=== PATIENT | male | born 2000 | race Caucasian/White ===

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

== ENCOUNTER 2021-05-06 12:19 | Emergency (ER) | payer OTHER ==
[~2021-05-06] VITALS: Ht 170.2 cm; Wt 98.0 kg
[~2021-05-06 12:19] MED LIST: ONDA-188 SL
[2021-05-06 12:29] VITALS: BP 146/89
[2021-05-06] MEDS ORDERED: IBUPROFEN 600 MG TAB PO ONE (12:40)
[2021-05-06] MEDS ORDERED: IBUPROFEN 600 MG TAB ONE (13:56)
[2021-05-06] MEDS ORDERED: NAPR-54 PO (13:59)
--- NOTE | 2021-05-06 14:33 | NUR ---
20/M BIB SELF WITH C/O LEFT ARM, SHOULDER AND LEFT LEG PAIN SINCE THURSDAY. STATES HE SLIPPED AND FELL IN THE KITCHEN AT WORK CAUSING DISHES TO FALL DOWN ON HIM. PATIENT DENIES HEAD INJURY, LOC, N/V. PATIENT AMBULATORY UPON ARRIVAL, DENIES TAKING ANYTHING FOR PAIN.
[2021-05-06 14:39] VITALS: BP 146/84
--- NOTE | 2021-05-06 14:39 | NUR ---
Patient discharged with v/s stable. Written and verbal after care instructions ABOUT CONTUSION given and explained. Patient alert, oriented and verbalized understanding of instructions. Ambulatory with steady gait. All questions addressed prior to discharge. ID band removed. Patient advised to follow up with PMD. Rx of NAPROXEN given. Patient educated on indication of medication including possible reaction and side effects. Opportunity to ask questions provided and answered.
== END 2021-05-06 14:39 | disposition home or self-care (01) ==
LOC: MED 12:19
DX: S40.022A Contusion of left upper arm, initial encounter (principal); S80.02XA Contusion of left knee, initial encounter; Z79.899 Other long term (current) drug therapy; W01.0XXA Fall on same level from slipping, tripping and stumbling without subsequent striking against object, initial encounter; Y93.89 Activity, other specified; Y92.89 Other specified places as the place of occurrence of the external cause; Y99.0 Civilian activity done for income or pay
CPT/HCPCS: 73060; 73080; 73562; 99284

== ENCOUNTER 2022-02-15 21:02 | Emergency (ER) | payer OTHER ==
[~2022-02-15 21:02] MED LIST changes: +NAPR-54 PO
--- NOTE | 2022-02-15 22:11 | NUR ---
ATTEMPTED TO CALL PATIENT WITH NO SUCCESS.
--- NOTE | 2022-02-15 22:19 | NUR ---
ATTEMPTED TO CALL PATIENT WITH NO SUCCESS.
--- NOTE | 2022-02-15 22:20 | NUR ---
LWBS 2020
== END 2022-02-15 22:11 | disposition left against medical advice (07) ==
LOC: MED 21:02
DX: J02.9 Acute pharyngitis, unspecified (principal); Z53.21 Procedure and treatment not carried out due to patient leaving prior to being seen by health care provider